=== PATIENT | female | born 1980 | race Caucasian/White ===

== ENCOUNTER 2020-06-06 13:35 | Emergency (ER) | payer SELFPAY ==
[2020-06-06] MEDS ORDERED: KETOROLAC TROMETHAMINE 60 MG/2 ML SDV IM ONE (14:10)
--- NOTE | 2020-06-06 15:15 | ER Document Report ---
HPI - HPI Time Seen by Provider: 06/06/20 14:09 Pain Level: 2 Notes: 38-year-old female patient presents emergency department chief complaint of fatigue, cough and congestion. She reports symptoms started yesterday. She states she feels exhausted. She states she is unable to take a deep breath without triggering a coughing spell, she is without recent travel, denies any exposure to any known COVID-19 positive persons. - CONSTITUTIONAL Constitutional: DENIES: Fever, Chills - EENT Notes: cough, non productive - REPRODUCTIVE LMP: 05/07/2020 Reproductive: DENIES: : Past Medical History - General Information source: Patient - Social History Smoking Status: Current Every Day Smoker Chew tobacco use (# tins/day): No Frequency of alcohol use: None Drug Abuse: None Family History: Reviewed & Not Pertinent Patient has homicidal ideation: No - Medical History Medical History: Negative Past Surgical History: Reports: Hx Gynecologic Surgery Vertical Provider Document - CONSTITUTIONAL Notes: PHYSICAL EXAMINATION: GENERAL: Well-appearing, well-nourished and in no acute distress. HEAD: Atraumatic, normocephalic. EYES: Pupils equal round and reactive to light, extraocular movements intact, conjunctiva are normal. ENT: Nares patent, oropharynx clear without exudates. Moist mucous membranes. NECK: Normal range of motion, supple without lymphadenopathy LUNGS: Breath sounds clear to auscultation bilaterally and equal. No wheezes rales or rhonchi. HEART: Regular rate and rhythm without murmurs ABDOMEN: Soft, nontender, nondistended abdomen. No guarding, no rebound. No masses appreciated. Female : deferred Musculoskeletal: Normal range of motion, no pitting or edema. No cyanosis. NEUROLOGICAL: Cranial nerves grossly intact. Normal speech, normal gait. Normal sensory, motor exams PSYCH: Normal mood, normal affect. SKIN: Warm, Dry, normal turgor, no rashes or lesions noted. Course - Re-evaluation Re-evalutation: Chest X-Ray 06/06/20 15:14 IMPRESSION: NO ACUTE RADIOGRAPHIC FINDING IN THE CHEST. Patient appears well, nontoxic her vital signs are reviewed and are within normal limits. Patient is not hypoxic, tachycardic or tachypneic. Chest x-ray unremarkable. Patient will be tested for COVID-19 and will be discharged home. Patient is in agreement with this plan. - Vital Signs Vital signs: Temp Pulse Resp BP Pulse Ox 98.8 F 86 16 179/99 H 99 06/06/20 14:48 06/06/20 14:48 06/06/20 14:48 06/06/20 14:48 06/06/20 14:48 Discharge - Discharge Clinical Impression: Shortness of breath, Suspected COVID-19 virus infection Condition: Stable Disposition: HOME, SELF-CARE Additional Instructions: You were tested today for COVID-19. These results take 2 to 3 days to return. Please self quarantine until you have heard from the health department. Return to the emergency department with worsening shortness of breath. Drink plenty of fluids. Tylenol or ibuprofen for any fever or body aches. Prescriptions: Benzonatate [Tessalon Perles 100 mg Capsule] 2 tab PO Q8HP PRN #30 capsule PRN Reason: Forms: Return to Work
--- NOTE | 2020-06-06 16:40 | RADIOLOGY REPORT (SQ) ---
EXAM DESCRIPTION: CHEST SINGLE VIEW IMAGES COMPLETED DATE/TIME: 06/06/2020 4:21 pm REASON FOR STUDY: shortness of breath COMPARISON: None. EXAM PARAMETERS: NUMBER OF VIEWS: One view. TECHNIQUE: Single frontal radiographic view of the chest acquired. RADIATION DOSE: NA LIMITATIONS: None. FINDINGS: LUNGS AND PLEURA: No opacities, masses or pneumothorax. No pleural effusion. MEDIASTINUM AND HILAR STRUCTURES: No masses. Contour normal. HEART AND VASCULAR STRUCTURES: Heart normal in size. Normal vasculature. BONES: No acute findings. HARDWARE: None in the chest. OTHER: No other significant finding. IMPRESSION: NO ACUTE RADIOGRAPHIC FINDING IN THE CHEST. TECHNICAL DOCUMENTATION: JOB ID: [id number] 2010 [employer]- All Rights Reserved Reading location - IP/workstation name: [email or web address]
[2020-06-06 17:50] VITALS: BP 168/98
== END 2020-06-06 17:45 | disposition home or self-care (01) ==
LOC: ER 13:35
DX: R06.02 Shortness of breath (principal); Z20.828 Contact with and (suspected) exposure to other viral communicable diseases; R53.83 Other fatigue; R05 Cough; R68.89 Other general symptoms and signs; F17.200 Nicotine dependence, unspecified, uncomplicated
CPT/HCPCS: 99283; 87635; 71045; C9803